=== PATIENT | male | born 1980 | race Hispanic/Latino ===

== ENCOUNTER → 2017-10-10 | Outpatient (RCR) | payer OTHER | LOC: PT 08:59 | PROVIDERS: ATTEND Family Medicine | DX: S82.001A Unspecified fracture of right patella, initial encounter for closed fracture (principal); M24.661 Ankylosis, right knee; M25.561 Pain in right knee; M25.661 Stiffness of right knee, not elsewhere classified; R26.2 Difficulty in walking, not elsewhere classified; M62.81 Muscle weakness (generalized) | CPT/HCPCS: 97110; 97161; G8978; G8979 ==

== ENCOUNTER 2017-11-09 09:00 | Outpatient (RCR) | payer OTHER | END 2017-11-10 | LOC: PT 09:00 | PROVIDERS: ATTEND Specialist | DX: S82.091A Other fracture of right patella, initial encounter for closed fracture (principal); M25.561 Pain in right knee; M25.661 Stiffness of right knee, not elsewhere classified; R26.2 Difficulty in walking, not elsewhere classified; M62.81 Muscle weakness (generalized) | CPT/HCPCS: 97010 ×9; 97110 ×11; 97139; G8978; G8979 ==

== ENCOUNTER 2017-12-11 14:11 | Outpatient (RCR) | payer OTHER | END 2018-01-10 | LOC: PT 14:11 | PROVIDERS: ATTEND Specialist | DX: S82.001A Unspecified fracture of right patella, initial encounter for closed fracture (principal); M25.561 Pain in right knee; M25.661 Stiffness of right knee, not elsewhere classified; M62.81 Muscle weakness (generalized); R26.2 Difficulty in walking, not elsewhere classified | CPT/HCPCS: 97110; 97139; G8979; G8980 ==